=== PATIENT | female | born 1960 | race Caucasian/White ===

== ENCOUNTER 2018-07-26 16:33 | Emergency (ER) | payer BC ==
[2018-07-26 17:58] VITALS: BP 125/61
--- NOTE | 2018-07-26 18:22 | UC ---
General HPI - HPI Summary HPI Summary: head congestion, cough and chest congestion x 1 week with worsening. now, green sputum and sinus drainage. subjective fever/chills. admits to sob and wheezing. - History of Current Complaint Chief Complaint: UCRespiratory Stated Complaint: SINUSES Time Seen by Provider: 07/26/18 18:13 Hx Obtained From: Patient Hx Last Menstrual Period: 04/11/15 Onset/Duration: Gradual Onset Timing: Constant Pain Intensity: 0 - Allergy/Home Medications Allergies/Adverse Reactions: Allergies Allergy/AdvReac Type Severity Reaction Status Date / Time No Known Allergies Allergy Verified 07/26/18 17:52 Home Medications: Home Medications metFORMIN* [Glucophage 500 MG TAB *] 500 mg PO DAILY 07/26/18 [History Confirmed 07/26/18] PMH/Surg Hx/FS Hx/Imm Hx Endocrine History: Diabetes, Hyperthyroidism Cardiovascular History: Hypertension - Surgical History Surgical History: Yes Surgery Procedure, Year, and Place: Left Femur Fracture Repair, 1975, [facility]. Rhinoplasty, 1975, [facility]. C-Sections, 1987 1994, [facility] - Family History Known Family History: Positive: None - Social History Occupation: Employed Full-time Alcohol Use: Rare Substance Use Type: None Smoking Status (MU): Never Smoked Tobacco Household Exposure Type: Cigarettes - Immunization History Vaccination Up to Date: Yes Review of Systems Constitutional: Fever, Chills ENT: Sinus Congestion, Sinus Pain/Tenderness Respiratory: Shortness Of Breath, Cough Is Patient Immunocompromised?: No All Other Systems Reviewed And Are Negative: Yes Physical Exam Triage Information Reviewed: Yes Appearance: Well-Appearing Vital Signs: Initial Vital Signs Temp 97.9 F 07/26/18 17:53 Pulse 86 07/26/18 17:53 Resp 18 07/26/18 17:53 BP 125/61 07/26/18 17:53 Pulse Ox 98 07/26/18 17:53 Vital Signs Reviewed: Yes Eyes: Positive: Conjunctiva Clear ENT: Positive: Pharynx normal, Nasal congestion, TMs normal, Sinus tenderness. Negative: Nasal drainage Neck: Positive: Supple, Nontender, No Lymphadenopathy Respiratory: Positive: Lungs clear, No respiratory distress, Decreased breath sounds, Other: - Bronchospatic cough Cardiovascular: Positive: RRR, No Murmur Abdomen Description: Positive: Nontender, No Organomegaly, Soft Bowel Sounds: Positive: Present Musculoskeletal: Positive: ROM Intact Neurological: Positive: Alert Psychological: Positive: Age Appropriate Behavior Skin Exam: Normal Course/Dx - Course Course Of Treatment: non toxic, not hypoxic. no concern for pneumonia. - Differential Dx - Multi-Symptom Provider Diagnoses: sinsuitis. bronchitis Discharge - Sign-Out/Discharge Documenting (check all that apply): Patient Departure All imaging exams completed and their final reports reviewed: No Studies - Discharge Plan Condition: Stable Disposition: HOME Prescriptions: Albuterol HFA INHALER* [Ventolin HFA Inhaler*] 2 puff INH Q6H #1 mdi Amoxicillin/Clavulanate TAB* [Augmentin TAB 875*] 875 mg PO BID 10 Days #20 tab Patient Education Materials: Sinusitis (ED), Acute Bronchitis (ED) Referrals: Gricelda Reaves NP [Primary Care Provider] - 7 Days - Billing Disposition and Condition Condition: STABLE Disposition: Home
== END 2018-07-26 18:32 | disposition home or self-care (01) ==
LOC: UCCORT 16:33
DX: J32.9 Chronic sinusitis, unspecified (principal); J40 Bronchitis, not specified as acute or chronic; E11.9 Type 2 diabetes mellitus without complications; I10 Essential (primary) hypertension; Z79.84 Long term (current) use of oral hypoglycemic drugs
CPT/HCPCS: 99212; G0463